=== PATIENT | female | born 1995 | race Caucasian/White ===

== ENCOUNTER 2025-06-13 19:29 | Emergency (ER) | payer SELFPAY ==
[~2025-06-13] VITALS: Ht 154.9 cm; Wt 71.0 kg
[2025-06-13 19:33] VITALS: BP 137/86; PULSE 111; RESP 18; TEMP 98.3; O2SAT 98
--- NOTE | 2025-06-13 20:24 | ED.PDOC ---
Eye-HPI HPI Comments Year old female presents to the ED chief complaint tooth pain. Patient states started two days ago to left lower jaw has been taking [id number] Tylenol with little relief. Denies fever chills, nausea, vomiting, difficulty breathing, shortness of breath, or difficulty swallowing. Chief Complaint: Tooth Pain Time Seen by MD: 19:44 Reviewed Notes: Nurses Notes, Medications, Allergies Allergies: Coded Allergies: NO KNOWN ALLERGIES (Unverified , 06/13/25) Home Meds Active Scripts Ibuprofen (Ibuprofen) 800 Mg Tab, 800 MG PO Q8HP PRN for 5 Days, #15 TAB Prov:KEN CHAIDEZ SHIPPING RECEIVING CLERK 06/13/25 Amoxicillin & Pot Clavulanate (AUGMENTIN TABLET) 875 Mg Tb, 875 MG PO BID for 7 Days, #14 TAB Prov:KAYLYNNKEN SHIPPING RECEIVING CLERK 06/13/25 Information Source: Patient Mode of Arrival: Ambulatory Past Medical History PAST MEDICAL HISTORY: Denies Surgical History: Denies all surgeries IVF EMBRYOLOGIST History: No Pertinent IVF EMBRYOLOGIST History Family History Family History: Unknown Social History Smoker: Non-Smoker Alcohol: Denies ETOH Use Drugs: Denies Drug Use All Other Systems: Reviewed and Negative (see hpi) Physical Exam General Appearance: No Apparent Distress, Normal HEENT: Pharynx Normal, TMs Normal, Other (Noted left lower jaw back molar moderate decay trace edema along jawline) Neck: Full Range of Motion, Non-Tender Respiratory: Lungs Clear, No Respiratory Distress, Normal Breath Sounds Cardiovascular: No Murmur, Normal Peripheral Pulses, Regular Rate/Rhythm Breast Exam: Deferred Gastrointestinal: Non Tender, Soft Genitalia: Deferred Pelvic: Deferred Rectal: Deferred Extremities: Normal capillary refill, Normal range of motion Musculoskeletal : Apperance: Normal Neurologic: Alert, No Motor Deficits, Normal Affect, Normal Mood, No Sensory Deficits Cerebellar Function: Normal Reflexes: NOT DONE Skin: Dry, Normal Color, Warm Lymphatic: No Adenopathy Was a procedure done? Was a procedure done?: No EENT DIFF Eye: N/A Ear: Otitis Media, Perforation, Dental, Pharyngitis X-Ray, Labs, Meds, VS Vital Signs Date Time Temp Pulse Resp B/P (MAP) Pulse Ox O2 Delivery O2 Flow Rate FiO2 06/13/25 19:33 98.3 111 18 137/86 98 98.3 Current Medications Medications (Trade) Dose Ordered Sig/Phil Route Start Time Stop Time Status Last Admin Benzocaine (Hurricaine [place]) 1 spr ONCE ONCE MT 06/13/25 20:30 06/13/25 20:31 DC 06/13/25 20:44 Acetaminophen/ Hydrocodone Bitart ([place] 5/325MG Tab) 1 tab ONCE ONCE PO 06/13/25 20:30 06/13/25 20:31 DC 06/13/25 20:44 Ketorolac Tromethamine (Toradol Injection) 60 mg ONCE ONCE IM 06/13/25 20:30 06/13/25 20:31 DC 06/13/25 20:44 Amoxicillin/ Clavulanate Potassium (Augmentin Tablet) 875 mg ONCE ONCE PO 06/13/25 20:30 06/13/25 20:31 DC 06/13/25 20:44 X-Ray, Labs, Meds, VS Comment Script trial of Augmentin advised take medication as prescribed side effects discussed. Advised to follow up with make an appointment with dental for resolution. ER return precautions given patient indicates understanding and agrees with discharge plan of care. Time of 1ST Reevaluation: 19:44 Reevaluation 1ST: Unchanged Time of 2ND Reevaluation: 20:31 Reevaluation 2ND: Improved Patient Education/Counseling: Diagnosis, Treatment, Need For Follow Up Family Education/Counseling: No Family Present SEPSIS Sepsis Screen Date sepsis recognized/suspect: Jun 13, 2025 Time Sepsis recognized/suspect: 1935 Recent Procedure: No On Antibiotic Therapy: No Respiratory Rate >20: No Heart Rate >90: No Temp<36 C (96.8 F) or >38.3 C: No SBP <90 or MAP <65 mmHG: No New Acute Mental Status Change: No Is the patient on CPAP, BIPAP,: No Vital Signs Date Time Temp Pulse Resp B/P (MAP) Pulse Ox O2 Delivery O2 Flow Rate FiO2 06/13/25 19:33 98.3 111 18 137/86 98 98.3 Medications Medications Dose Ordered Sig/Phil Route Start Time Stop Time Status Last Admin Dose Admin Acetaminophen/ Hydrocodone Bitart 1 tab ONCE ONCE PO 06/13/25 20:30 06/13/25 20:31 DC 06/13/25 20:44 Amoxicillin/ Clavulanate Potassium 875 mg ONCE ONCE PO 06/13/25 20:30 06/13/25 20:31 DC 06/13/25 20:44 Benzocaine 1 spr ONCE ONCE MT 06/13/25 20:30 06/13/25 20:31 DC 06/13/25 20:44 Ketorolac Tromethamine 60 mg ONCE ONCE IM 06/13/25 20:30 06/13/25 20:31 DC 06/13/25 20:44 Departure 1 Departure Time of Disposition: 20:29 Impression: Primary Impression: Dental infection Disposition: HOME / SELF CARE / HOMELESS Condition: Stable e-Prescriptions Ibuprofen (Ibuprofen) 800 Mg Tab 800 MG PO Q8HP PRN for 5 Days, #15 TAB Prov: KEN CHAIDEZ 06/13/25 Amoxicillin & Pot Clavulanate (AUGMENTIN TABLET) 875 Mg Tb 875 MG PO BID for 7 Days, #14 TAB Prov: KEN CHAIDEZ 06/13/25 Discharged With: Self Critical Care Note Critical Care Time?: No Stability Stability form required: No KEN CHAIDEZ Jun 13, 2025 20:24
[2025-06-13] MEDS ORDERED: IBUP-1456 PO (20:31)
[2025-06-13] MEDS ORDERED: AUG875T PO (20:31)
[2025-06-13] MEDS: BENZOCAINE (DENTAL) 20 % SPRAY 60ML MT ONE (20:44)
[2025-06-13] MEDS: KETOROLAC TROMETH 60MG/2ML VIAL IM ONE (20:44)
[2025-06-13] MEDS: HYDROcodone-ACET 5/325MG TAB PO ONE (20:44)
== END 2025-06-13 20:45 | disposition home or self-care (01) ==
LOC: ER 19:29
DX: K04.7 Periapical abscess without sinus (principal)
CPT/HCPCS: 96372; 99284; J1885